=== PATIENT | female | born 1955 | race Caucasian/White ===

== ENCOUNTER 2022-10-18 18:08 | Emergency (ER) | payer SELFPAY ==
[~2022-10-18] VITALS: Ht 165.1 cm; Wt 52.7 kg
[2022-10-18 18:13] VITALS: BP 149/59; PULSE 91; RESP 18; TEMP 98.1; O2SAT 100
[2022-10-18] MEDS ORDERED: LIDO1ADH23 TP (19:13)
[2022-10-18] MEDS ORDERED: IBUP-2028 MT (19:13)
[2022-10-18] MEDS ORDERED: TOPUD PO (19:13)
== END 2022-10-18 20:00 | disposition home or self-care (01) ==
LOC: ER 18:08
DX: S93.402A Sprain of unspecified ligament of left ankle, initial encounter (principal); Z88.5 Allergy status to narcotic agent; X58.XXXA Exposure to other specified factors, initial encounter; Y93.89 Activity, other specified; Y92.89 Other specified places as the place of occurrence of the external cause; Y99.8 Other external cause status
CPT/HCPCS: 73630; 99283